=== PATIENT | female | born 1995 | race Caucasian/White ===

== ENCOUNTER 2017-03-10 15:11 | Emergency (ER) | payer BC ==
[~2017-03-10] VITALS: Ht 160 cm; Wt 110.4 kg
[~2017-03-10 15:11] MED LIST: CALC600T12 PO; ESCI20TA PO; LAMO150T42 PO; MULT-57 PO; ONDA4TAB7 PO; SALT TABLETS PO
[2017-03-10 15:15] VITALS: Ht 160 cm; Wt 110.4 kg
--- NOTE | 2017-03-10 15:24 | ERPDOC ---
Departure Disposition Decision Date: March 10, 2017 Disposition Decision Time: 16:24 Disposition: 01 DISCHARGED HOME, SELF-CARE Impression Impression Impression: Primary Impression: Headache Headache type: other headache syndrome Qualified Codes: G44.89 - Other headache syndrome Additional Impression: Seizures Severity: Moderate Condition: Improved Seen By: Physician only Referrals: ROBERT BENITEZ DO (Family) 2 Weeks HEIDI GUERRERO MD 1 Week Patient Instructions: Recurrent Seizures in Adults (ED) Problems/Meds/Labs Reviewed?: Yes Medications reviewed and manag: Yes Additional Instructions: Your symptoms can be a sign of impending seizures. Increase your lamictal to 100mg twice a day, and call Dr. Guerrero's office to get on his cancellation list. Follow up with your doctor in the next 1-2 weeks. Follow up care ordered?: Yes Mental Status: Alert, Oriented Scripts Lamotrigine (Lamictal) 100 Mg Tablet 1 TAB PO BID for 30 Days, #60 TAB Prov: FEBRUARYSIMI DO 03/10/17 HPI - CVA/Neuro General Chief Complaint: Neuro Symptoms/Deficits Stated Complaint: HEADACHE,MEMORY LOSS Time Seen by Provider: 15:17 Source: patient Exam Limitations: no limitations HPI - CVA/NEURO Initial Comments 21yo woman presented to the ER by her father for confusion, memory loss, and HAs. 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 Pts grandmother was her caregiver until she ~1mo ago. Since then, pts father has been caring for her. Over the last two weeks, pt has had trouble with her memory, headaches, and confusion. Over the last two days, pt has had the 'aura' of an impending seizure without getting a seizure. She called her PCM today and was told to present to the ER for a CT head. Occurred At: home Onset/Timing: Gradual, Getting worse Duration: other Pain/Severity Scale: Now & Worst: 8/10 Severity: severe Associated Symptoms: confusion, fatigue Hx of Similar Symptoms: No Allergies: Coded Allergies: midodrine (Verified Allergy, Unknown, 2 HOURS OF GOOSEBUMPS, 11/29/16) Past History Patient Medical History (1) POTS (postural orthostatic tachycardia syndrome) (2) Seizures Past Medical History Cardiac: echocardiogram, other GI: GERD Neurological: seizures Psychological: ADHD, depression, other, suicide attempt Surgical History General: EGD, colonoscopy Family History Family PMH: FOUND: CAD, cancer, diabetes Social History Sexuality: male partner Review of Systems Neurological General: headache, memory disturbances All other Systems All Other Systems: Reviewed and Negative Physical Exam General General Nourishment: well nourished, well developed, appears stated age, no acute distress, adult, obese General Body Habitus: well groomed Vitals and Pain First Documented Vital Signs Date Time Temp Pulse Resp B/P Pulse Ox O2 Delivery O2 Flow Rate FiO2 03/10/17 15:15 98.8 94 18 154/94 97 Room Air Weight: Kilograms: 110.400 Height (feet): 5 Height (inches): 3.00 Triage Pain Scale: RN VS reviewed by Provider: Yes Eyes (brief) Eyes Brief: found: EOMI, PERRL, not found: scleral icterus ENMT (brief) ENMT Brief: FOUND: TM clear, TM good light reflex, ear canals clear, mucosa moist, normal tonsils Neck (brief) Neck: FOUND: trachea midline, NOT FOUND: JVD, adenopathy, thyromegaly Respiratory (brief) Respiratory: FOUND: clear all yun, equal bilaterally, symmetrical, NOT FOUND : rales, wheezes Cardiovascular (brief) Cardiac: FOUND: regular rate, regular rhythm, NOT FOUND: click, gallop, murmur , pedal edema, peripheral edema, rub Capillary Refill: <2 sec Pulses: all distal extremities, equal, strong Abdomen (brief) Abdominal Brief: FOUND: bowel normo active x4, soft, NOT FOUND: distended, hepatosplenomegaly, pulsatile mass, tender Lymphatic (brief) Lymphatic Brief: NOT FOUND: adenopathy, lymphedema Musculoskeletal (brief) Musculoskeletal Brief: NOT FOUND: deformity, loss of motion, spasm, tenderness Integumentary (brief) Integumentary Brief: FOUND: pink, warm Neurologic (brief) Neurological Brief: FOUND: CN w/o gross def to obs, DTR 2/4 all extremities, gait w/o gross def to obs, motor-no gross deficits, sensory-no gross deficits, NOT FOUND: Babinski Psychiatric (brief) Psychiatric Brief: FOUND: alert, oriented, NOT FOUND: normal affect (Flat) Differential Diagnoses Considering: Thrombotic CVA, Hemorrhagic CVA, Hypo/hypercalcemia, Hypo/ hyperglycemia, Hypo/hypernatremia, Medication Effect, Psychogenic, Other ( Seizure) Progress Results/Orders Orders Procedure Category Date Status Time Nothing By Mouth (Ed EDM 03/10/17 Transmitted Only) 15:24 Bgm (Ed) EDM 03/10/17 Transmitted 15:24 Cbc W/Auto LAB 03/10/17 Complete Diff-Reflex Manual 15:24 Bmp - Basic Metabolic LAB 03/10/17 Complete Panel 15:24 Lorazepam (Ativan) PHA 03/10/17 Complete 15:30 Ct Head W/O Contrast CT 03/10/17 Resulted 15:32 UA, LAB 03/10/17 Complete Dip&Micro(Complete) & 15:54 Lab Results Laboratory Tests Test 03/10/17 15:49 03/10/17 15:54 White Blood Count 6.6T/MM3 Red Blood Count 4.84M/MM3 Hemoglobin 14.6GM/DL Hematocrit 42.7% Mean Corpuscular Volume 88.2UM3 Mean Corpuscular Hemoglobin 30.2UUG Mean Corpuscular Hemoglobin Concent 34.2GM/DL RDW Standard Deviation 38.2FL Platelet Count 313T/MM3 Mean Platelet Volume 11.2UM3 Immature Granulocyte % (Auto) 0.2% Neutrophils (%) (Auto) 62.2% Lymphocytes (%) (Auto) 28.5% Monocytes (%) (Auto) 6.4% Eosinophils (%) (Auto) 2.4% Basophils (%) (Auto) 0.3% Absolute Immature Granulocyte (auto 0.01T/MM3 Absolute Neutrophils (auto) 4.1T/MM3 Absolute Lymphocytes (auto) 1.9T/MM3 Absolute Monocytes (auto) 0.4T/MM3 Absolute Eosinophils (auto) 0.2T/MM3 Absolute Basophils (auto) 0.0T/MM3 Turbidity < 20 Sodium Level 146MEQ/L Potassium Level 3.9MEQ/L Chloride Level 105MEQ/L Carbon Dioxide Level 26MEQ/L Anion Gap 15MEQ/L Blood Urea Nitrogen 12.0MG/DL Creatinine 0.7MG/DL Glomerular Filtration Rate Calc 106 BUN/Creatinine Ratio 17RATIO Glucose Level 106MG/DL Glucometer 89mg/dL Calculated Osmolality 281MOSM/KG Calcium Level 10.2MG/DL Icterus Index < 2 Chemistry Specimen Hemolysis < 15 Urine Collection Type Cleancatch-midstream Urine Color Yellow Urine Turbidity Cloudy Urine pH 7.0 Urine Specific [place] 1.020 Urine Protein Negative Urine Glucose (UA) Negative Urine Ketones Negative Urine Blood 3+ Urine Nitrite Negative Urine Bilirubin Negative Urine Urobilinogen 0.2EU/DL Urine Leukocyte Esterase Negative Urine RBC 1-3/HPF Urine WBC 3-5/HPF Urine Squamous Epithelial Cells >50 Urine Bacteria 2+ Urine Culture Indicated Cult not indicated Medications Current ED Medications Lorazepam (Ativan) 1 mg O ONCE IM Last administered on 03/10/17t 15:40; Start 03/10/17 at 15:30; Stop 03/10/17 at 15:31; Status DC Progress Progress 21yo woman with sx c/w aura/partial seizures. Provided pt with neurologist recommendations for med changes and f/u. Pt voiced understanding of dx, prognosis, tx, and f/u need. Consult/PCP Consult/PCP : Physician Contacted: Dr. Guerrero Time Called: 15:24 Time of first response: 15:33 Type of discussion: Phone Consult/PCP Discussion Details Review labs to ensure no infectious process. May obtain head CT, since pt is here. Increase lamictal to 100mg bid. F/u with Dr. Guerrero in clinic. CT CT : CT: Head no contrast Interpretation: Normal, Reviewed Written Report SIMI WINCHESTER DO March 10, 2017 15:24
[2017-03-10] MEDS ORDERED: LORAZEPAM 2 MG/ML INJECTION IM ONE (15:30)
--- OUTSIDE RECORDS SUMMARY | 2017-03-10 15:30 | XMS REPORT | Referral Summary ---
Author Author [facility], [facility] Organization [facility] Jeff [facility], [facility] Address Unknown Phone Unavailable Care Team Providers Care Water Registrar Name Role Phone Cate Lucas Primary Care Physician [phone] Encounter VC Date(s): 09/18/16 - 09/18/16 [facility], [address] [place] [address]- Discharge Disposition: 01-Home or Self Care Attending Physician: Femi Taylor APRN Admitting Physician: Femi Taylor APRN Vital Signs Most recent to 1 oldest [Reference Range]: Temperature Tympanic 35.6 degC [36.6-38.1 degC] *LOW* (09/18/16 11:11 AM) Peripheral Pulse 90 bpm Rate [60-100 bpm] (09/18/16 11:11 AM) Respiratory Rate 18 br/min [14-20 br/min] (09/18/16 11:11 AM) Blood Pressure 116/78 mmHg [90-140/60-90 mmHg] (09/18/16 11:11 AM) SpO2 97 % (09/18/16 11:11 AM) Problem List Condition Effective Dates Status Health Status Informant Acute Resolved pain(Confirmed) At risk for Resolved injury(Confirmed)1 Pseudoseizures(Confi Active rmed) Knowledge Active deficit(Confirmed)2 Obesity(Confirmed) Active patient POTS (postural Active patient orthostatic tachycardia syndrome)(Confirmed) Seizure(Confirmed) Active patient 1Problem added automatically by system based on initiation of Risk for Injury Plan of Care 2Problem added automatically by system based on initiation of Knowledge Deficit Plan of Care Allergies, Adverse Reactions, Alerts Substance Reaction Severity Status midodrine rash Medium Active tingling all over Medications Buffered Salt 0 Refill(s) Start Date: 02/13/16 Status: Ordered Calcium 600+D 1 tabs, Oral, Daily, 0 Refill(s) Start Date: 02/13/16 Status: Ordered lamoTRIgine 150 mg oral tablet 75 mg 0.5 tabs, Oral, Daily, 0 Refill(s) Start Date: 02/13/16 Status: Ordered Lexapro 20 mg oral tablet 20 mg 1 tabs, Oral, Daily, # 30 tabs, 0 Refill(s), other reason (Rx) Start Date: 03/03/16 Status: Ordered miconazole 2% topical cream 1 sendy, Topical, BID, # 142 g, 0 Refill(s), [facility]acy: [facility] [id number] Start Date: 08/12/16 Status: Ordered multivitamin See Instructions, 1 tab oral daily, 0 Refill(s) Start Date: 06/04/15 Status: Ordered Tri-Sprintec oral tablet 1 tabs, Oral, Daily, # 28 tabs, 1 Refill(s), Pharmacy: [facility] Start Date: 08/14/16 Status: Ordered Vyvanse 20 mg oral capsule 20 mg 1 caps, Oral, qAM, 0 Refill(s) Start Date: 02/13/16 Status: Ordered Results Hematology Most recent to 1 oldest [Reference Range]: WBC [5.0-10.0 9.4 10*3/uL 10*3/uL] (09/18/16 11:50 AM) RBC [3.70-5.20] 4.78 (09/18/16 11:50 AM) Hgb [12.0-16.0 15.1 gm/dL gm/dL] (09/18/16 11:50 AM) Hct [37.0-47.0 %] 43.4 % (09/18/16 11:50 AM) MCV [80.0-96.0 fL] 90.8 fL (09/18/16 11:50 AM) MCH [26.0-34.0 pg] 31.6 pg (09/18/16 11:50 AM) MCHC [32.0-36.0 34.8 gm/dL gm/dL] (09/18/16 11:50 AM) RDW [0.0-14.5 %] 12.0 % (09/18/16 11:50 AM) Platelet [150-400 276 10*3/uL 10*3/uL] (09/18/16 11:50 AM) MPV [8.8-14.8 fL] 10.9 fL (09/18/16 11:50 AM) Neutrophils [50-70 66 % %] (09/18/16 11:50 AM) Lymphocytes [20-40 24 % %] (09/18/16 11:50 AM) Monocytes [4-8 %] 7 % (09/18/16 11:50 AM) Eosinophils [0-6 %] 3 % (09/18/16 11:50 AM) Basophils [0-2 %] 0 % (09/18/16 11:50 AM) Neutro Absolute 6.23 10*3 [2.50-7.00 10*3] (09/18/16 11:50 AM) Lymph Absolute 2.24 10*3 [1.00-4.00 10*3] (09/18/16 11:50 AM) [place] Absolute 0.61 10*3 [0.20-0.80 10*3] (09/18/16 11:50 AM) Eos Absolute 0.31 10*3 [0.00-0.60 10*3] (09/18/16 11:50 AM) Baso Absolute 0.02 [0.00-0.30] (09/18/16 11:50 AM) Immunizations No data available for this section Procedures Procedure Date Related Diagnosis Body Site Collection of venous blood by venipuncture 09/18/16 Tumor, malignant1 2000 1Removed when she was 6 yrs old Social History Social History Type Response Smoking Status Never smoker Assessment and Plan No data available for this section
--- OUTSIDE RECORDS SUMMARY | 2017-03-10 15:30 | XMS REPORT | Continuity of Care Document ---
Author Author [facility] Organization [facility] Address Unknown Phone Unavailable Support Name Relationship Address Phone FEBRUARY, SIMI Herrera DO Caregiver [address] [place] [address] Unavailable ROBERT BENITEZ DO Caregiver Unknown Unavailable GREGORY CASTANEDA Next Of Kin [address] [place] [address] Insurance Providers Guarantor Maria Esther Castaneda Address [address] [place] [address] Email DENIED 16 Payer [facility] Policy Number [id number] Subscriber's Name Luis Fernando Castaneda Relationship 19 Child Group Number [id number] Advance Directives Directive Response Recorded Date/Time Advanced Directives Type None 11/29/16 8:05pm Chief Complaint and Reason for Visit Chief Complaint Nausea,Vomiting,Diarrhea Reason for Visit Nausea & vomiting Problems Active Problems Medical Problem Onset Date Status Abdominal pain Unknown Acute Constipation Unknown Acute Headache Unknown Acute Musculoskeletal pain Unknown Acute Observed seizure-like activity Unknown Acute Observed seizure-like activity Unknown Acute POTS (postural orthostatic tachycardia syndrome) Unknown Acute POTS (postural orthostatic tachycardia syndrome) Unknown Acute POTS (postural orthostatic tachycardia syndrome) Unknown Acute Seizure-like activity Unknown Acute Seizure-like activity Unknown Acute Seizures Unknown Acute Seizures Unknown Acute Somnolence Unknown Acute Syncope and collapse Unknown Acute Vomiting Unknown Acute Past Problems Medical Problem Onset Date Nausea & vomiting Unknown Medications Current Home Medications Medication Dose Units Route Directions Days Qty Instructions Start Date Calcium Carbonate (Calcium) 600 Mg Tablet 600 Mg Oral Daily 02/12 Escitalopram Oxalate (Lexapro) 20 Mg Tablet 30 Mg Oral Daily 06/01 Lamotrigine 150 Mg Tablet 150 Mg Oral Daily 12/11/15 Multivitamin (Daily Vitamin) 1 Each Tablet 1 Tab Oral Daily 06/25 Ondansetron (Zofran Odt) 4 Mg Tab.rapdis 4 Mg Oral Four Times Daily as needed for Nausea &/Or Vomiting 20 Tablet 11/29/16 Salt Tablets 1 Tab Oral Three Times A Day 06/02/15 Past Home Medications Medication Directions Ordered Status Levetiracetam 500 Mg Tablet, 1 Tab Oral Twice A Day 05/08/15 Discontinued Lorazepam 0.5 Mg Tablet, 0.5 Mg Oral Daily as needed for Anxiety 06/02/15 Discontinued Metoclopramide Hcl (Reglan) 10 Mg Tablet, 10 Mg Oral Four Times Daily as needed for Nausea Or Cramps 05/08/15 Discontinued Midodrine Hcl 10 Mg Tablet, 10 Mg Oral Three Times A Day 05/21/15 Discontinued No Routine Meds , 04/11/15 Discontinued Social History Social History Problem Response Recorded Date/Time Onset Date Status Hx Substance Use No 11/29/2016 8:37pm Not Applicable Not Applicable Hx Alcohol Use No 11/29/2016 8:37pm Not Applicable Not Applicable Tobacco Usage none 04/11/2015 10:47am Not Applicable Not Applicable Query Response Start Date Stop Date Smoking Status Never smoker Hospital Discharge Instructions No hospital discharge instructions. Plan of Care Discharge Date 11/29/16 9:54pm Disposition 01 DISCHARGED HOME, SELF-CARE Condition at Discharge Improved Instructions/Education Provided Acute Nausea and Vomiting (ED) Prescriptions See Medication Section Referrals ROBERT BENITEZ DO Order Date: 3 Days Note: Additional Instructions/Education Take the zofran as needed for nausea. Drink plenty of fluids and advance your diet as tolerated. Take ibuprofen or tylenol for pain and/or fevers. Follow up with your doctor later this week. Care Plan and Goals Physician Care Plan Problem: N/V/D Goal: Follow up with primary care provider Instructions: Take medications and follow care plan as discussed/written Functional Status No functional status results. Allergies, Adverse Reactions, Alerts Allergen Type Severity Reaction Status Last Updated Midodrine Allergy Unknown 2 HOURS OF GOOSEBUMPS Active 11/29/16 Immunizations Query Response on File Recorded Date/Time Influenza Vaccine Hx 201411/29/16 8:37pm Vital Signs Acute Vital Signs Vital Response Date/Time Temperature (Fahrenheit) 98.8 deg F (96.8 - 99.1) 11/29/2016 9:54pm Temperature (Calculated Celsius) 37.99231 degrees C (36.0 - 37.3) 11/29/2016 9:54pm Pulse Rate (adult) 96 bpm (60 - 100) 11/29/2016 9:54pm Respiratory Rate 20 breaths/min (10 - 20) 11/29/2016 9:54pm O2 Sat by Pulse Oximetry 97 % (90 - 100) 11/29/2016 9:54pm Blood Pressure 111/52 mm Hg 11/29/2016 9:54pm Height (Feet) 5 feet 11/29/2016 8:05pm Height (Inches) 2.00 inches 11/29/2016 8:05pm Weight (Kilograms) 110.800 kg 11/29/2016 8:05pm Body Mass Index (BMI) 44.0 11/29/2016 8:05pm Results Laboratory Results Test Name Result Units Flags Reference Collection Date/Time Result Date/ Time Comments White Blood Count 15.0 T/MM3 H 4.5-11.0 11/29/2016 8:24pm 11/29/2016 8: 52pm Red Blood Count 5.06 M/MM3 4.00-5.20 11/29/2016 8:24pm 11/29/2016 8: 52pm Hemoglobin 15.7 GM/DL 12-16 11/29/2016 8:24pm 11/29/2016 8:52pm Hematocrit 45.1 % 36-46 11/29/2016 8:24pm 11/29/2016 8:52pm Mean Corpuscular Volume 89.1 UM3 80-100 11/29/2016 8:24pm 11/29/2016 8: 52pm Mean Corpuscular Hemoglobin 31.0 UUG 26-34 11/29/2016 8:24pm 2016 8:52pm Mean Corpuscular Hemoglobin Concent 34.8 GM/DL 31-37 11/29/2016 8:24pm 11/29/2016 8:52pm RDW Standard Deviation 37.8 FL 36.9-50.2 11/29/2016 8:24pm 11/29/2016 8 :52pm Platelet Count 297 T/MM3 130-400 11/29/2016 8:24pm 11/29/2016 8:52pm Mean Platelet Volume 12.1 UM3 9.4-12.4 11/29/2016 8:24pm 11/29/2016 8: 52pm Neutrophils % (Manual) 76.0 % H 33-66 11/29/2016 8:24pm 11/29/2016 9: 13pm Band Neutrophils % 12.0 % H 0-6 11/29/2016 8:24pm 11/29/2016 9:13pm Lymphocytes % (Manual) 5.0 % L 23-45 11/29/2016 8:24pm 11/29/2016 9: 13pm Monocytes % (Manual) 4.0 % 0-9.0 11/29/2016 8:24pm 11/29/2016 9:13pm Eosinophils % (Manual) 2.0 % 0-4 11/29/2016 8:24pm 11/29/2016 9:13pm Reactive Lymphocytes % 1.0 % H 0-0 11/29/2016 8:24pm 11/29/2016 9:13pm Band Neutrophils # 1.8 T/MM3 11/29/2016 8:24pm 11/29/2016 9:13pm Absolute Neutrophils (Manual) 11.4 T/MM3 H 1.8-7.7 11/29/2016 8:24pm 09/2017 9:13pm Lymphocytes # (Manual) 0.8 T/MM3 L 1-4.8 11/29/2016 8:24pm 11/29/2016 9: 13pm Monocytes # (Manual) 0.6 T/MM3 0-0.8 11/29/2016 8:24pm 11/29/2016 9: 13pm Eosinophils # (Manual) 0.3 T/MM3 0-0.5 11/29/2016 8:24pm 11/29/2016 9: 13pm Reactive Lymphocytes # 0.2 T/MM3 H 0-0 11/29/2016 8:24pm 11/29/2016 9: 13pm Red Cell Morphology Comment NORMAL 11/29/2016 8:24pm 11/29/2016 9: 13pm Icterus Index < 2 0-7 11/29/2016 8:24pm 11/29/2016 8:41pm Chemistry Specimen Hemolysis 40 H 0-25 11/29/2016 8:24pm 11/29/2016 8: 41pm 26-70: Specimen Exhibited Slight Hemolysis - can falsely elevate K (Potassium) and Urine Protein. Turbidity < 20 0-20 11/29/2016 8:24pm 11/29/2016 8:41pm Sodium Level 142 MEQ/L 134-144 11/29/2016 8:24pm 11/29/2016 8:41pm Potassium Level 4.0 MEQ/L 3.6-5 11/29/2016 8:24pm 11/29/2016 8:41pm Chloride Level 105 MEQ/L 98-107 11/29/2016 8:24pm 11/29/2016 8:41pm Carbon Dioxide Level 23 MEQ/L 22-30 11/29/2016 8:24pm 11/29/2016 8: 41pm Anion Gap 14 MEQ/L 5-15 11/29/2016 8:24pm 11/29/2016 8:41pm Blood Urea Nitrogen 15.0 MG/DL 7-17 11/29/2016 8:24pm 11/29/2016 8: 41pm Creatinine 0.6 MG/DL L 0.7-1.2 11/29/2016 8:24pm 11/29/2016 8:41pm BUN/Creatinine Ratio 25 RATIO 6-26 11/29/2016 8:24pm 11/29/2016 8:41pm Glomerular Filtration Rate Calc 126 11/29/2016 8:24pm 11/29/2016 8: 41pm Glucose Level 89 MG/DL 65-110 11/29/2016 8:24pm 11/29/2016 8:41pm Calculated Osmolality 273 MOSM/KG 261-280 11/29/2016 8:24pm 11/29/2016 8:41pm Calcium Level 10.0 MG/DL 8.4-10.2 11/29/2016 8:24pm 11/29/2016 8:41pm C-Reactive Protein 20.8 MG/L H 0-9 11/29/2016 8:24pm 11/29/2016 8:41pm Lipase 49 U/L 23-300 11/29/2016 8:24pm 11/29/2016 8:41pm Prolactin 25.1 NG/ML 11/29/2016 8:24pm 11/29/2016 8:55pm Normal Female (Non-): 3.0-18.6 ng/ml; Males: 3.7-17.9 ng/ml Urine Collection Type CLEANCATCH-MIDSTREAM 11/29/2016 8:40pm 2016 8:46pm Urine Color YELLOW YELLOW 11/29/2016 8:40pm 11/29/2016 8:46pm Urine Turbidity SL CLOUDY CLEAR 11/29/2016 8:40pm 11/29/2016 8:46pm Urine Specific [place] 1.015 1.015-1.025 11/29/2016 8:40pm 2016 8:46pm Urine pH 7.5 5.0-8.0 11/29/2016 8:40pm 11/29/2016 8:46pm Urine Leukocyte Esterase NEGATIVE NEGATIVE 11/29/2016 8:40pm 2016 8:46pm Urine Nitrite NEGATIVE NEGATIVE 11/29/2016 8:40pm 11/29/2016 8:46pm Urine Protein NEGATIVE NEGATIVE 11/29/2016 8:40pm 11/29/2016 8:46pm Urine Glucose (UA) NEGATIVE NEGATIVE 11/29/2016 8:40pm 11/29/2016 8: 46pm Urine Ketones NEGATIVE NEGATIVE 11/29/2016 8:40pm 11/29/2016 8:46pm Urine Urobilinogen 0.2 EU/DL NORMAL 11/29/2016 8:40pm 11/29/2016 8: 46pm Urine Bilirubin NEGATIVE NEGATIVE 11/29/2016 8:40pm 11/29/2016 8: 46pm Urine Blood NEGATIVE NEGATIVE 11/29/2016 8:40pm 11/29/2016 8:46pm Urinalysis Comment MICROSCOPIC NOT IND. 11/29/2016 8:40pm 2016 8:46pm Procedures No known history of procedures. Encounters Encounter Location Arrival/Admit Date Discharge/Depart Date Attending Provider Departed Emergency Room [facility] 11/29/16 8:05pm 11/29/16 9: 54pm SIMI WINCHESTER DO Recent Diagnosis
--- OUTSIDE RECORDS SUMMARY | 2017-03-10 15:30 | XMS REPORT | Referral Summary ---
Author Author [facility], [facility] Organization [facility] Jeff [facility], [facility] Address Unknown Phone Unavailable Care Team Providers Care [employer] Chief Creative Officer Name Role Phone Cate Lucas Primary Care Physician [phone] Encounter VC Date(s): 08/17/16 - 08/17/16 [facility], [address] [place] [address]- Discharge Disposition: 01-Home or Self Care Attending Physician: Femi Taylor APRN Admitting Physician: Femi Taylor APRN Vital Signs Most recent to 1 oldest [Reference Range]: Temperature Tympanic 36.8 degC [36.6-38.1 degC] (08/17/16 9:29 AM) Peripheral Pulse 78 bpm Rate [60-100 bpm] (08/17/16 9:29 AM) Respiratory Rate 17 br/min [14-20 br/min] (08/17/16 9:29 AM) Blood Pressure 118/60 mmHg [90-140/60-90 mmHg] (08/17/16 9:29 AM) SpO2 98 % (08/17/16 9:29 AM) Problem List Condition Effective Dates Status [...] BID, # 142 g, 0 Refill(s), Pharmacy: [facility] [id number] Start Date: 08/12/16 Status: Ordered multivitamin See Instructions, 1 tab oral daily, 0 Refill(s) Start Date: 06/04/15 Status: Ordered Tri-Sprintec oral tablet 1 tabs, Oral, Daily, # 28 tabs, 1 Refill(s), Pharmacy: [facility] [id number] Start Date: 08/14/16 Status: Ordered Vyvanse 20 mg oral capsule 20 mg 1 caps, Oral, qAM, 0 Refill(s) Start Date: 02/13/16 Status: Ordered Results No data available for this section Immunizations No data available for this section Procedures Procedure Date Related Diagnosis Body Site Tumor, malignant1 2000 1Removed when she was 6 yrs old Social History Social History Type Response Smoking Status Never smoker Assessment and Plan No data available for this section
--- OUTSIDE RECORDS SUMMARY | 2017-03-10 15:30 | XMS REPORT | Referral Summary ---
Author Author [facility] Xie Newton, [facility] Organization Via FrannyCINTH[facility] Jeff Newton, [facility] Address Unknown Phone Unavailable Care Team Providers Care Technical Services Consultant Name Role Phone Cate Lucas Primary Care Physician [phone] Encounter VC Date(s): 08/28/16 - 08/28/16 [facility] Xie Newton, [address] [place] [address]- Discharge Diagnosis: Obesity Discharge Disposition: 01-Home or Self Care Attending Physician: Femi Taylor APRN Admitting Physician: Femi Taylor APRN Vital Signs Most recent to 1 oldest [Reference Range]: Temperature Tympanic 36.5 degC [36.6-38.1 degC] *LOW* (08/28/16 10:28 AM) Peripheral Pulse 96 bpm Rate [60-100 bpm] (08/28/16 10:28 AM) Respiratory Rate 16 br/min [14-20 br/min] (08/28/16 10:28 AM) Blood Pressure 124/68 mmHg [90-140/60-90 mmHg] (08/28/16 10:28 AM) SpO2 96 % (08/28/16 10:28 AM) Problem List Condition Effective Dates Status [...] midodrine rash Medium Active tingling all over Milk Products1 Active 1Severe SA, Vomits Medications Buffered Salt 0 Refill(s) Start Date: [...] BID, # 142 g, 0 Refill(s), Pharmacy: [facility] [id number] Start Date: 08/12/16 Status: Ordered multivitamin See Instructions, 1 tab oral daily, 0 Refill(s) Start Date: 06/04/15 Status: Ordered Tri-Sprintec oral tablet 1 tabs, Oral, Daily, # 28 tabs, 1 Refill(s), Pharmacy: [facility] [id number] Start Date: 08/14/16 Status: Ordered Vyvanse 20 [...] Smoking Status Never smoker Assessment and Plan Extracted from: Title: Office Visit Note Author: Femi Taylor APRN Date: 08/28/16 Assessment/Plan 1.Obesity We discussed her caloric goals todayand determined that a goal of 1680 carries would be appropriate for her. We work together on getting her On her tablet optimized for her. She will also try to increase her activityand may get afitness tracker to help her with this. We'll plan to see her in one month from now. Greater than 25 minutes is spent in counseling at this time.
--- OUTSIDE RECORDS SUMMARY | 2017-03-10 15:30 | XMS REPORT | Continuity of Care Document ---
Author Author Tawana Gilliam Address Unknown Phone Unavailable Care Team Providers Care Placement Secretary Name Role Phone [employer] Unavailable Unavailable Problems Medications Allergies, Adverse Reactions, Alerts Immunizations Results Vital Signs Vital Sign Value Date Comments Source Systolic Blood Pressure Cuff Monitored 119 mm[Hg] 08/30/2013 [facility] Respiratory Rate 20 BR/min [facility] Diastolic Blood Pressure Cuff Monitored 60 mm[Hg] 08/30/2013 [facility] Heart Rate 105 bpm 2012 [facility] Encounters Location Location Details Encounter Type Encounter Number Reason For Visit Attending Provider ADM Date DC Date Status Source [facility] CLI [id number] damaris White 08/30/2013 08/30/2013 Active [facility] Procedures Plan of Care Social History Assessment and Plan Family History Value Date Source Advance Directives Order Name Results Value Date Source
--- OUTSIDE RECORDS SUMMARY | 2017-03-10 15:30 | XMS REPORT | Referral Summary ---
Author Author [facility], [facility] Organization [facility] Xie Newton [facility] Address Unknown Phone Unavailable Care Team Providers Care Transaction Processor Name Role Phone Cate Lucas Primary Care Physician [phone] Encounter VC Date(s): 11/18/16 - 11/18/16 [facility] Xie Newton, [address] [place] [address] [place] Discharge Disposition: 01-Home or Self Care Attending Physician: Mehnaz Lucas DO Admitting Physician: Mehnaz Lucas DO Vital Signs No data available for this section Problem List Condition Effective Dates Status Health [...] BID, # 142 g, 0 Refill(s), Pharmacy: [email or web address] [id number] Start Date: 08/12/16 Status: Ordered multivitamin See Instructions, 1 tab oral daily, 0 Refill(s) Start Date: 06/04/15 Status: Ordered Tri-Sprintec oral tablet 1 tabs, Oral, Daily, # 28 tabs, 1 Refill(s), Pharmacy: [email or web address] [id number] Start Date: 08/14/16 Status: Ordered Vyvanse 20 [...]
--- OUTSIDE RECORDS SUMMARY | 2017-03-10 15:30 | XMS REPORT | Referral Summary ---
Author Author [facility] Xie Newton, Family [facility] Organization Via CIN[facility] Xie Newton, [facility] Address Unknown Phone Unavailable Care Team Providers Care Safety Council Director Name Role Phone Cate Lucas Primary Care Physician [phone] Encounter VC Date(s): 11/20/16 - 11/20/16 [facility] Xie Newton, [address] [place] [address]- Discharge Disposition: 01-Home or Self Care Attending Physician: Mehnaz Lucas DO Admitting Physician: Mehnaz Lucas DO Vital Signs Most recent to 1 oldest [Reference Range]: Temperature Tympanic 36.0 degC [36.6-38.1 degC] *LOW* (11/20/16 2:56 PM) Peripheral Pulse 90 bpm Rate [60-100 bpm] (11/20/16 2:56 PM) Respiratory Rate 18 br/min [14-20 br/min] (11/20/16 2:56 PM) Blood Pressure 110/62 mmHg [90-140/60-90 mmHg] (11/20/16 2:56 PM) SpO2 96 % (11/20/16 2:56 PM) Problem List Condition Effective Dates Status Health [...] BID, # 142 g, 0 Refill(s), Pharmacy: [facility] [id number] Start Date: 08/12/16 Status: Ordered multivitamin See Instructions, 1 tab oral daily, 0 Refill(s) Start Date: 06/04/15 Status: Ordered Tri-Sprintec oral tablet 1 tabs, Oral, Daily, # 28 tabs, 1 Refill(s), Pharmacy: [facility] [id number] Start Date: 08/14/16 Status: Ordered Vyvanse 20 [...]
--- OUTSIDE RECORDS SUMMARY | 2017-03-10 15:30 | XMS REPORT | Continuity of Care Document ---
Author Author [facility] Organization [facility] Address Unknown Phone Unavailable Allergies Medications Problems Procedures Results Test Result Range CBC WITH DIFF - 03/07/15 11:20 WBC 8.0 10*3/uL 4.0-10.8 RBC 4.79 10*6/uL 4.20-5.40 HGB 15.0 g/dL 12.0-16.0 HCT 44.6 % 37-47 MCV 93 fL 81-99 MCH 31 pg 26-34 MCHC 34 g/dL 31-37 PLATELET COUNT 253 10*3/uL 150-400 RDWCV 12.5 % 11.5-14.5 DIFF TYPE AUTOMATED DIFF NEUTROPHIL % 72 % 36-66 LYMPHOCYTE % 19 % 24-44 MONOCYTE % 7 % 1-10 EOSINOPHIL % 1 % 0-6 BASOPHIL % 0 % 0-2 ABS. NEUTROPHILS 5.8 10*3/uL 1.55-7.13 ABS. LYMPHOCYTES 1.6 10*3/uL 1.0-4.8 ABS. MONOCYTES 0.6 10*3/uL 0.4-1.08 ABS. EOSINOPHILS 0.1 10*3/uL 0.0-0.65 ABS. BASOPHILS 0.0 10*3/uL 0.0-0.11 ABSOLUTE NUCLEATED RBC 0.00 10*3/uL COMPREHENSIVE METABOLIC PANEL - 03/07/15 11:20 POTASSIUM 4.0 mmol/L 3.5-5.1 CALCIUM 10.0 mg/dL 8.6-10.6 GLUCOSE 83 mg/dL 70-115 BUN 8 mg/dL 8-22 CREATININE 0.6 mg/dL 0.6-1.1 SODIUM 141 mmol/L 136-145 CHLORIDE 106 mmol/L 98-110 CO2 25 mmol/L 22-29 GFR ESTIMATED NOT AFR/AM >60 GFR ESTIMATED IF AFR/AM >60 ALT-SGPT 25 U/L 0-55 AST-SGOT 22 U/L 5-34 TOTAL PROTEIN,SERUM 7.0 g/dL 6-8.3 ALBUMIN 4.5 g/dL 3.6-5.3 ALKALINE PHOSPHATASE 99 U/L 40-150 TOTAL BILIRUBIN 0.4 mg/dL 0.2-1.2 ANION GAP 10 5-15 GLOBULIN, CALCULATED 2.5 g/dL A/G RATIO 1.8 ratio 1-1.8 PROLACTIN - 03/07/15 11:20 PROLACTIN 28.82 ng/mL 1.2-29.9 URINALYSIS AUTOMATED W MICROSCOPY - 03/07/15 12:05 SPECIMEN VOIDED URINE COLOR LIGHT YELLOW APPEARANCE CLEAR CLEAR SPECIFIC GRAVITY 1.006 1.005-1.030 PH, URINE 6.5 5.0-9.0 PROTEIN NEGATIVE mg/dL NEGATIVE GLUC NEGATIVE mg/dL NEGATIVE KETONES NEGATIVE mg/dL NEGATIVE BILIRUBIN NEGATIVE NEGATIVE BLOOD NEGATIVE NEGATIVE NITRITE NEGATIVE NEGATIVE UROBILINOGEN NORMAL mg/dL NORMAL LEUKOCYTE ESTERASE NEGATIVE NEGATIVE WBC'S <1 [HPF] 0-4 RBC'S <1 [HPF] 0-1 MUCUS RARE [LPF] SQUAMOUS EPITHELIAL CELLS 1 [LPF] 0-1 BACTERIA RARE [HPF] Encounters ACCT No. Visit Date/Time Discharge Status Pt. Type Provider Facility Loc./Unit Complaint [id number] 04/10/2015 00:00:00 04/10/2015 23:59:59 [facility] Outpatient [facility] [id number] 04/10/2015 00:00:00 04/10/2015 23:59:59 [facility] Outpatient [facility] [id number] 03/07/2015 11:02:12 03/07/2015 15:44:00 DIS Emergency NANDINI ALVES [facility] CRISTIAN
--- OUTSIDE RECORDS SUMMARY | 2017-03-10 15:30 | XMS REPORT | Referral Summary ---
Author Author [facility] X[facility], Family [facility] Organization [facility] Xie Newton, [facility] Address Unknown Phone Unavailable Care Team Providers Care Dairy Tester Name Role Phone Cate Lucas Primary Care Physician [phone] Encounter VC Date(s): 08/12/16 - 08/12/16 [facility] Xie Newton, [address] [place] [address]- Discharge Diagnosis: PCOS (polycystic ovarian syndrome) Discharge Diagnosis: Amenorrhea Discharge Disposition: 01-Home or Self Care Attending Physician: Mehnaz Lucas DO Admitting Physician: Mehnaz Lucas DO Vital Signs Most recent to 1 oldest [Reference Range]: Temperature Tympanic 36.8 degC [36.6-38.1 degC] (08/12/16 8:27 AM) Peripheral Pulse 77 bpm Rate [60-100 bpm] (08/12/16 8:27 AM) Blood Pressure 122/76 mmHg [90-140/60-90 mmHg] (08/12/16 8:27 AM) SpO2 98 % (08/12/16 8:27 AM) Problem List Condition Effective Dates Status [...] BID, # 142 g, 0 Refill(s), Pharmacy: [facility] [id number] Start Date: 08/12/16 Status: Ordered multivitamin See Instructions, 1 tab oral daily, 0 Refill(s) Start Date: 06/04/15 Status: Ordered Vyvanse 20 mg oral capsule 20 mg 1 caps, Oral, qAM, 0 Refill(s) Start Date: 02/13/16 Status: Ordered Results Chemistry Most recent to 1 oldest [Reference Range]: Sodium Lvl [135-144 139 mEq/L mEq/L] (08/12/16 9:35 AM) Potassium Lvl 4.2 mEq/L [3.5-5.2 mEq/L] (08/12/16 9:35 AM) Chloride [99-111 105 mEq/L mEq/L] (08/12/16 9:35 AM) CO2 [22-31 mEq/L] 25 mEq/L (08/12/16 9:35 AM) AGAP [3-20] 9 (08/12/16 9:35 AM) BUN [7-19 mg/dL] 10 mg/dL (08/12/16 9:35 AM) Glucose Lvl [70-99 84 mg/dL mg/dL] (08/12/16 9:35 AM) Creatinine Lvl 0.66 mg/dL [0.57-1.11 mg/dL] (08/12/16 9:35 AM) eGFR [>60 mL/min] >60 mL/min 1 (08/12/16 9:35 AM) Calcium Lvl 9.5 mg/dL [8.9-10.5 mg/dL] (08/12/16 9:35 AM) LH 3.7 mIU/mL 2 (08/12/16 9:35 AM) FSH 1.4 mIU/mL 3 (08/12/16 9:35 AM) TSH with Reflex Free 2.52 T4 [0.35-4.94] (08/12/16 9:35 AM) 1Result Comment: Multiply eGFR results by 1.21 for race. 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 Most women with PCOS grow many small cysts on their ovaries. PCOS can cause problems with your periods and make it difficult to get . It can also cause an increased risk of miscarriage with . If left untreated, PCOS can lead to serious health problems, such as diabetes and heart disease. CAUSES The cause of PCOS is not fully understood, but genetics may be a factor. SIGNS AND SYMPTOMS Infrequent or no menstrual periods. Inability to get (infertility) because of not ovulating. Increased growth of hair on the face, chest, stomach, back, thumbs, thighs, or toes. Acne, oily skin, or dandruff. Pelvic pain. Weight gain or obesity, usually carrying extra weight around the waist. Type 2 diabetes. High cholesterol. High blood pressure. Female-pattern baldness or thinning hair. Patches of thickened and dark brown or black skin on the neck, arms, breasts, or thighs. Tiny excess flaps of skin (skin tags) in the armpits or neck area. Excessive snoring and having breathing stop at times while asleep (sleep apnea). Deepening of the voice. Gestational diabetes when . DIAGNOSIS There is no single test to diagnose PCOS. Your health care provider will: Take a medical history. Perform a pelvic exam. Have ultrasonography done. Check your female and male hormone levels. Measure glucose or sugar levels in the blood. Do other blood tests. If you are producing too many male hormones, your health care provider will make sure it is from PCOS. At the physical exam, your health care provider will want to evaluate the areas of increased hair growth. Try to allow natural hair growth for a few days before the visit. During a pelvic exam, the ovaries may be enlarged or swollen because of the increased number of small cysts. This can be seen more easily by using vaginal ultrasonography or screening to examine the ovaries and lining of the uterus (endometrium) for cysts. The uterine lining may become thicker if you have not been having a regular period. TREATMENT Because there is no cure for PCOS, it needs to be managed to prevent problems. Treatments are based on your symptoms. Treatment is also based on whether you want to have a baby or whether you need contraception. Treatment may include: Progesterone hormone to start a menstrual period. control pills to make you have regular menstrual periods. Medicines to make you ovulate, if you want to get . Medicines to control your insulin. Medicine to control your blood pressure. Medicine and diet to control your high cholesterol and triglycerides in your blood. Medicine to reduce excessive hair growth. Surgery, making small holes in the ovary, to decrease the amount of male hormone production. This is done through a long, lighted tube (laparoscope) placed into the pelvis through a tiny incision in the lower abdomen. HOME CARE INSTRUCTIONS Only take [id number] or prescription medicine as directed by your health care provider. Pay attention to the foods you eat and your activity levels. This can help reduce the effects of PCOS. Keep your weight under control. Eat foods that are low in carbohydrate and high in fiber. Exercise regularly. SEEK MEDICAL CARE IF: Your symptoms do not get better with medicine. You have new symptoms. This information is not intended to replace advice given to you by your health care provider. Make sure you discuss any questions you have with your health care provider. Document Released: 01/28/2006 Document Revised: 07/25/2014 Document Reviewed: Elsevier Interactive Patient Education 2016 [employer] No follow up information was provided.
--- OUTSIDE RECORDS SUMMARY | 2017-03-10 15:31 | XMS REPORT | Continuity of Care Document ---
Author Author Tawana Gilliam Address Unknown Phone Unavailable Care Team Providers Care Paint Prep Technician Name Role Phone [employer] Unavailable Unavailable Problems Medications Allergies, Adverse Reactions, Alerts Immunizations Results Vital Signs Vital Sign Value Date Comments Source Systolic Blood Pressure Cuff Monitored 119 mm[Hg] 08/30/2013 [facility] Respiratory Rate 20 BR/min [facility] Diastolic Blood Pressure Cuff Monitored 60 mm[Hg] 08/30/2013 [facility] Heart Rate 105 bpm 2012 [facility] Encounters Location Location Details Encounter Type Encounter Number Reason For Visit Attending Provider ADM Date DC Date Status Source [facility] CLI [id number] damaris Whiet 08/30/2013 08/30/2013 Active [facility] Procedures Plan of Care Social History Assessment and Plan Family History Value Date Source Advance Directives Order Name Results Value Date Source
--- OUTSIDE RECORDS SUMMARY | 2017-03-10 15:32 | XMS REPORT | Continuity of Care Document ---
Author Author [facility] Organization [facility] Address Unknown Phone Unavailable Allergies Medications Problems [...] Status Pt. Type Provider Facility Loc./Unit Complaint [id number] 04/10/2015 00:00:00 04/10/2015 23:59:59 [facility] Outpatient [facility] [id number] 04/10/2015 00:00:00 04/10/2015 23:59:59 [facility] Outpatient [facility] [id number] 03/07/2015 11:02:12 03/07/2015 15:44:00 DIS Emergency NANDINI ALVES [facility] CRISTIAN
--- NOTE | 2017-03-10 15:54 | NUR ---
CT Patient out to CT
[2017-03-10 15:57] LABS: BLOOD, URINE 3+ (NEGATIVE); COLOR,URINE YELLOW (YELLOW); LEUKOCYTE ESTERASE ,URINE NEGATIVE (NEGATIVE); NITRITE,URINE NEGATIVE (NEGATIVE); UROBILINOGEN,URINE 0.2 EU/DL (NORMAL)
[2017-03-10 16:00] LABS: BASOPHILS % (AUTO) 0.3 % (0-2); EOSINOPHILS # (AUTO) 0.2 T/MM3 (0-0.5); EOSINOPHILS % (AUTO) 2.4 % (0-4); HCT - HEMATOCRIT 42.7 % (36-46); HGB - HEMOGLOBIN 14.6 GM/DL (12-16); IMMATURE GRANULOCYTE # (AUTO) 0.01 T/MM3 (0.00-0.03); IMMATURE GRANULOCYTE % (AUTO) 0.2 % (0.0-0.5); LYMPHOCYTES # (AUTO) 1.9 T/MM3 (1-4.8); LYMPHOCYTES % (AUTO) 28.5 % (23-45); MEAN CORPUSCULAR HGB 30.2 UUG (26-34); MEAN CORPUSCULAR HGB CONC(MCHC 34.2 GM/DL (31-37); MEAN CORPUSCULAR VOLUME 88.2 UM3 (80-100); MEAN PLATELET VOLUME 11.2 UM3 (9.4-12.4); MONOCYTES # (AUTO) 0.4 T/MM3 (0-0.8); MONOCYTES % (AUTO) 6.4 % (0-9.0); NEUTROPHILS #(AUTO)-ABSOLUTE 4.1 T/MM3 (1.8-7.7); NEUTROPHILS % (AUTO) 62.2 % (33-66); RED BLOOD COUNT 4.84 M/MM3 (4.00-5.20); WBC - WHITE BLOOD COUNT 6.6 T/MM3 (4.5-11.0)
--- NOTE | 2017-03-10 16:01 | NUR ---
CT Patient returns.
[2017-03-10 16:04] LABS: ANION GAP 15 MEQ/L (5-15); BUN/CREATININE RATIO 17 RATIO (6-26); CALCIUM 10.2 MG/DL (8.4-10.2); CHLORIDE 105 MEQ/L (98-107); CO2 - CARBON DIOXIDE 26 MEQ/L (22-30); CREATININE 0.7 MG/DL (0.7-1.2); GLOMERULAR FILTRATION RATE 106; GLUCOSE 106 MG/DL (65-110); POTASSIUM 3.9 MEQ/L (3.6-5); SODIUM 146 MEQ/L (134-144)
[2017-03-10 16:05] LABS: BACTERIA,URINE 2+ (NEGATIVE); SQUAMOUS EPITHELIAL CELL,UR >50
--- NOTE | 2017-03-10 16:13 | DI ---
Indication: ITS.REASON: Aura with confusion, memory loss and visual changes for one week PROCEDURE: CT HEAD W/O CONTRAST: Encounter: Initial Comparison: Head CT dated May 21, 2015 Technique: Axial CT images through the head were performed without contrast. Iterative Reconstruction dose reducing technique was utilized. FINDINGS: The ventricles are of normal size, shape, and configuration for the patient's age. There is no evidence of acute intracranial hemorrhage, midline displacement, or mass effect. The CT attenuation of the brain parenchyma is normal within the cerebellum, brain stem, and cerebral hemispheres. The tympanic cavities and mastoid air cells are free of appreciable disease. There are no definite fractures of the skull base, calvarium, or visualized portion of the midface. IMPRESSION: No CT evidence of acute intracranial abnormality. Normal head CT. .
[2017-03-10] MEDS ORDERED: LAMO100T PO (16:27)
[2017-03-10 16:40] VITALS: BP 135/76; PULSE 86; RESP 18; TEMP 98.8; O2SAT 98
== END 2017-03-10 16:40 | disposition home or self-care (01) ==
LOC: ED 15:11
DX: R51 Headache (principal); R56.9 Unspecified convulsions
CPT/HCPCS: 36415; 70450; 80048; 81001; 82948; 85025; 96372; 99284; J2060